=== PATIENT | male | born 1975 | race Caucasian/White ===

== ENCOUNTER 2022-05-03 22:40 | Emergency (ER) | payer BC ==
[~2022-05-03] VITALS: Ht 167.6 cm; Wt 82.6 kg
[2022-05-03 23:17] VITALS: BP_SYST 155
--- NOTE | 2022-05-04 00:43 | NUR ---
PT DROVE HIMSELF TO ER WITH COMPLAINT OF SWELLING WITH PURALENT DISCHARGE ON 2 TOE OF RIGHT FOOT. PT GOT A SPLINTER AND REMOVED IT. TOE SUBSEQUENTLY STARTED TO SWELL, PT DID NOT THINK MUCH OF IT BECAUSE HE HAS A HX OF GOUT. HTN. PT DENIES ANY CHEST PAIN, OR TROUBLE BREATHING. PT PLACED ON MONITOR WITH BED LOWERED, LOCKED AND LOWERED.
--- NOTE | 2022-05-04 01:46 | NUR ---
DR RODRIGUEZ SUBMITED ORDERS FOR PT
[2022-05-04] MEDS ORDERED: LIDOCAINE 1% 10 MG/ML, 20 ML MDV INJ ONE (03:15)
[2022-05-04] MEDS ORDERED: LEVO-62 PO (03:36)
--- NOTE | 2022-05-04 04:33 | NUR ---
Dr Underwood provided swab samples to take to lab from [facility]
[2022-05-04] MEDS ORDERED: levoFLOXacin 500 MG TABLET PO ONE (04:45)
--- NOTE | 2022-05-04 04:46 | NUR ---
PER DR RODRIGUEZ ORDERS BANDAGED TOE WITH DRY BANDAGING
[2022-05-04] MEDS ORDERED: DIPHTH,PERTUSS(ACELL),TET VAC 0.5 ML VIAL (Tdap) I.M. ONE (05:15)
[2022-05-04 05:22] VITALS: BP_SYST 133
== END 2022-05-04 05:22 | disposition home or self-care (01) ==
LOC: SED 22:40
DX: S90.454A Superficial foreign body, right lesser toe(s), initial encounter (principal); L02.611 Cutaneous abscess of right foot; L03.031 Cellulitis of right toe; I10 Essential (primary) hypertension; Z79.899 Other long term (current) drug therapy; W45.8XXA Other foreign body or object entering through skin, initial encounter; Y93.89 Activity, other specified; Y92.89 Other specified places as the place of occurrence of the external cause; Y99.8 Other external cause status
CPT/HCPCS: 99285; 10120; 87070; 87075; 90471; 73660; 90715; J2001; 99283